=== PATIENT | female | born 1975 | race Two or more races ===

== ENCOUNTER → 2018-03-02 15:49 | Outpatient (CLI) | payer BC, SELFPAY ==
[2018-03-09 08:35] LABS: HPV Reflexed? NOT INDICATED
== END ==
PROVIDERS: Visit Provider Obstetrics & Gynecology
DX: Z12.4 Encounter for screening for malignant neoplasm of cervix (principal)
CPT/HCPCS: 88175; G0145

== ENCOUNTER → 2021-03-12 10:19 | Outpatient (CLI) | payer BC, SELFPAY ==
[2021-03-12 11:26] LABS: Hematocrit 39.3 % (37-47); Hemoglobin 13.3 g/dL (12.0-15.0); Mean Corp Hgb Conc 33.8 g/dL (32-36); Mean Corpuscular Hgb 30.4 pg (27.0-32.0); Mean Corpuscular Volume 89.9 fL (81-99); Mean Platelet Vol. 9.5 fl (6.2-12.0); Platelet Count 253 K/mm3 (150-450); RBC Distribution Width CV 11.7 % (11.6-14.6); RBC Distribution Width SD 38.4 fl (35.1-43.9); Red Blood Count 4.37 M/mm3 (4.2-5.4)
[2021-03-12 11:40] LABS: Cholesterol 217 mg/dL (200); Ferritin 32 ng/mL (8-252); Glucose 87 mg/dL (74-106); High Density Lipoprotein 73 mg/dL; Iron 117 ug/dL (50-170); Iron Binding Capacity,Total 341 ug/dL (250-450); Triglycerides 62 mg/dL; Very Low Density Lipoprotein 12 mg/dL (5-40)
[2021-03-12 11:43] LABS: Hemoglobin A1c 5.3 % (3.8-5.6)
[2021-03-14 17:26] LABS: HPV APTIMA, High Risk Negative (Negative)
== END ==
PROVIDERS: Visit Provider Obstetrics & Gynecology
DX: Z13.1 Encounter for screening for diabetes mellitus (principal); Z13.220 Encounter for screening for lipoid disorders; Z83.2 Family history of diseases of the blood and blood-forming organs and certain disorders involving the immune mechanism; E83.10 Disorder of iron metabolism, unspecified; Z12.4 Encounter for screening for malignant neoplasm of cervix
CPT/HCPCS: 36415; 80061; 82728; 82947; 83036; 83540; 83550; 85027; 87624; 88175; G0145

== ENCOUNTER 2021-09-02 12:16 | Outpatient (CLI) | payer BC, SELFPAY | END 2021-09-02 23:59 | disposition home or self-care (01) | LOC: LABSPEC 12:18 | PROVIDERS: Visit Provider Obstetrics & Gynecology | DX: K62.89 Other specified diseases of anus and rectum (principal) | CPT/HCPCS: 87077; 87086; 87088; 87186 ==